=== PATIENT | male | born 1990 | race Caucasian/White ===

== ENCOUNTER 2021-10-02 23:24 | Emergency (ER) | payer SELFPAY ==
--- NOTE | ~2021-10-02 | XR_ITS ---
EXAMINATION: XR chest 1V portable DATE: 10/03/2021 00:50 INDICATION: Chest pain. TECHNIQUE: A single frontal view of the chest was obtained. COMPARISON: None. FINDINGS: The chest demonstrates clear lungs without pneumonia, pleural effusion, or pneumothorax. Th e heart size is normal. IMPRESSION: 1. No acute cardiopulmonary disease. Reviewed, dictated and finalized at location E. D AUTO APPRAISER
--- NOTE | ~2021-10-02 | CT_ITS ---
EXAMINATION: CT brain wo con DATE: 10/03/2021 00:49 INDICATION: Confusion. Headache. TECHNIQUE: Computed tomography (CT) of the head was performed without intravenous contrast. The mA wa s adjusted according to patient size. Iterative reconstruction technique was employed. The dose-lengt h product was 605.33 mGy-cm. COMPARISON: None FINDINGS: There is no intracranial hemorrhage, acute infarction, or abnormal intracranial mass lesion . The ventricles are normal in size. There is mild mucosal thickening in the ethmoid sinuses. The mas toid air cells are normal. IMPRESSION: 1. Normal brain. Reviewed, dictated and finalized at location E. ER MACHINE TENDER IMPRESSION: 1. Normal brain.
[2021-10-02 23:29] VITALS: BP 136/93; PULSE 89; RESP 18; TEMP 36.1; O2SAT 95
--- NOTE | 2021-10-02 23:29 | ED.AMS ---
HPI - Altered Mental Status General Chief Complaint: Anxiety Stated Complaint: confusion Time Seen by Provider: 10/02/21 23:29 History of Present Illness HPI narrative: 31-year-old male with chronic neck /back pain, chronic marijuana use purchased his marijuana from a senior product manager. He subsequently became -- confused and did not know where he was. 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 He was not oriented to place and time. His called the .ambulance. The patient is hemodynamically stable. The patient complained of transient neck pain, chest pain and shortness of breath en route to the hospital. The symptoms resolved after he arrived at the hospital. MD complaint: altered mental status and confusion Onset (ago): hour(s) ( 3 hours ago) Timing confirmed by: spouse Severity: mild Consistency of symptoms: waxing and waning Context: drug abuse Associated symptoms: chest pain and shortness of breath Related Data Home Medications Medication Instructions Recorded Confirmed No Home Medications 10/02/21 10/02/21 Allergies Allergy/AdvReac Type Severity Reaction Status Date / Time No Known Allergies Allergy Verified 10/02/21 23:35 Review of Systems Review of Systems: All systems reviewed & are unremarkable except as noted in HPI and below ROS unobtainable: Yes unobtainable due to endotracheal tube Constitutional: Constitutional: Reports as per HPI and Reports no additional constitutional complaints Eyes: Eyes: Reports as per HPI and Reports no additional eye complaints ENT: Reports system reviewed and no additional complaints, except as documented Cardiovascular: Cardiovascular: Reports as per HPI and Reports chest pain Comments: transient chest pain which lasted 2-3 minutes Respiratory: Respiratory: Reports as per HPI and Reports no additional respiratory complaints Comments: transient shortness of breath en route to the hospital. Gastrointestinal: Gastrointestinal: Reports as per HPI and Reports no additional gastrointestinal complaints Genitourinary: Genitourinary: Reports no additional male genitourinary complaints Musculoskeletal: Musculoskeletal: Reports back pain Comments: complains of chronic neck pain which radiates up and down his spine. No recent trauma. Integumentary/Breasts: Skin/Breast: Reports system reviewed and no additional complaints, except as docu Neurologic: Reports system reviewed and no additional complaints, except as documented and Reports headache(s) Comments: He complained of headache which is generalized. No neuro deficits. No nausea /vomiting. Psychiatric: Psychiatric: Reports no additional psychiatric complaints and Reports anxiety Endocrine: Endocrine: Reports no additional endocrine complaints Hematologic/Lymphatic: Hematologic/Lymphatic: Reports no additional hematologic/lymphatic complaints Allergic/Immunologic: Allergic/Immunologic: Reports no additional allergic/immunologic complaints [facility], LAT[facility] Past Medical History Medical History Anxiety Broken ankle Depression Hallucination Tremors of nervous system Social History Social History (Updated 10/03/21 @ 00:55 by Fidel Rosario MD) Social History: Marijuana use Substance use type: marijuana Exam Const: General: no acute distress and confusion Nutritional Appearance: well nourished and obese HENMT: Head: normal to inspection Eyes: Conjunctivae: conjunctivae normal Pupils: Equal, round and reactive pupils present Neck: Neck: normal visual inspection Chest: Chest palpation & inspection: normal inspection of the chest Resp: Effort & Inspection: normal respiratory effort Cardio: Rate: regular rate Rhythm: regular rhythm GI: GI Palp: Yes Soft to palpation : General: Yes no CVA tenderness Testes: Testes normal Skin: General skin exam: normal color Rashes: no rashes Neuro: General: moves all extremit
--- NOTE | 2021-10-02 23:30 | ECG_ITS ---
Measurements Intervals [place] Rate: 75 P: 43 IL: 150 QRS: 14 QRSD: 100 T: 14 QT: 332 QTc: 371 Interpretive Statements SINUS RHYTHM EARLY PRECORDIAL R/S TRANSITION BASELINE ARTIFACT- I, II, III, AVR, AVL, AVF BORDERLINE ECG Electronically Signed On 10-03-2021 7:34:35 BASKET MENDER by Samir Blackman D.O.
[2021-10-02 23:52] LABS: Basophils Absolute Auto 0.05 K/mm3 (0.00-0.10); Basophils Percent Auto 0.5 % (0.0-1.0); Hematocrit 45.2 % (40.0-54.0); Hemoglobin 15.8 g/dL (14.0-18.0); Immature Granulocyte Absolute 0.03 K/mm3 (0.00-0.00); Immature Granulocyte Percent A 0.3 % (0.0-0.0); Lymphocytes Absolute Auto 2.47 K/mm3 (1.10-4.50); Mean Corpuscular Hemoglobin 29.5 pg (27.0-31.0); Mean Corpuscular Volume 84.5 fL (78.0-102.0); Mean Platelet Volume 9.3 fl (8.7-11.0); Monocytes Absolute Auto 0.69 K/mm3 (0.10-0.90); Neutrophils Absolute Auto 6.5 K/mm3 (1.7-7.2); Neutrophils Percent Auto 66.2 % (50.0-70.0); Platelet Count Result 305 K/mm3 (150-420); Red Blood Count 5.35 M/mm3 (4.70-6.10); Red Cell Distribution Width 11.8 % (11.6-14.4); White Blood Count 9.9 K/mm3 (4.8-10.8)
[2021-10-03] LABS: Add Urine Microscopic? YES; Appearance Urine Clear (Clear); Bilirubin Urine Negative (Negative); Blood Urine 2+ (Negative); Color Urine Light Yellow (Yellow); Glucose Urine UA Negative (Negative); Ketones Urine Negative (Negative); Leukocyte Esterase Ur Negative (Negative); Nitrate Urine Negative (Negative); Protein Urine Negative (Negative); Urobilinogen Urine 0.2 mg/dL (0.2-1.0)
[2021-10-03 00:05] LABS: INR 1.1; Partial Thromboplastin Time 26.5 SEC (23.90-30.70); Prothrombin Time 11.4 Seconds (9.50-12.10)
[2021-10-03 00:07] LABS: Amphetamine Screen Urine Negative (Negative); Bacteria Urine Trace /hpf; Barbiturate Screen Urine Negative (Negative); Benzodiazepines Screen Urine Negative (Negative); Cannabinoid Screen Urine Positive (Negative); Cocaine Screen Urine Negative (Negative); Methadone Screen Urine Negative (Negative); Opiate Screen Urine Negative (Negative); Phencyclidine Screen Urine Negative (Negative); WBC Urine 0-3 /hpf (0-3)
[2021-10-03 00:09] LABS: Alanine Aminotransferase 30 U/L (16-63); Albumin Level 4.5 g/dL (3.4-5.0); Alkaline Phosphatase 69 U/L (46-116); Anion Gap 12 mmol/L (8-16); Aspartate Amino Transferase 15 U/L (15-37); Bilirubin,Total 0.8 mg/dL (0.00-1.00); Blood Urea Nitrogen 15 mg/dL (7-18); Calcium 8.9 mg/dL (8.5-10.1); Carbon Dioxide 25 mmol/L (21-32); Chloride 101 mmol/L (98-108); Estimated CRCL calculation 138 ml/min; Estimated Glomerular Filt Rate > 60; Glucose 103 mg/dL (70-99); Osmolality Calculated 286 mOsm/kg (285-295); Potassium 3.3 mmol/L (3.5-5.1); Sodium 138 mmol/L (136-145); Troponin I 5.6 ng/L (0.00-60.4)
[2021-10-03 00:12] LABS: Lipase 93 U/L (73-393)
[2021-10-03 00:28] LABS: SARS-CoV-2 RNA PCR Negative (Negative)
[2021-10-03] MEDS: POTASSIUM CHLORIDE 20 MEQ TABLET 40 MEQ PO (01:02)
[2021-10-03 02:11] VITALS: BP 115/85; PULSE 67; RESP 16; TEMP 36.8; O2SAT 97
== END 2021-10-03 02:12 | disposition home or self-care (01) ==
PROVIDERS: Emergency Provider Internal Medicine Critical Care Medicine
DX: R41.82 Altered mental status, unspecified (principal); F12.10 Cannabis abuse, uncomplicated; Z20.822 Contact with and (suspected) exposure to COVID-19
CPT/HCPCS: 36415; 70450; 71045; 80053; 80307; 81001; 83690; 84484; 85025; 85610; 85730; 93005; 99284; A9270; C9803; U0003; U0005

== ENCOUNTER 2022-03-06 15:19 | Emergency (ER) | payer OTHER, SELFPAY ==
[2022-03-06] VITALS (12 sets, daily range): BP systolic 122–139; BP diastolic 77–104; PULSE 79–104; RESP 12–23; TEMP 36.8–36.9; O2SAT 96–98
--- NOTE | ~2022-03-06 | CT_ITS ---
EXAMINATION: CT abdomen pelvis w con DATE: 03/06/2022 17:01 INDICATION: Posterior abdominal pain. Intermittent nausea and blood in stools for 7 months. Lack stoo ls for 2 days. Decreased appetite. TECHNIQUE: Computed tomography (CT) of the abdomen and pelvis was performed with 100 CC Omnipaque 350 intravenous contrast. Automated exposure control and iterative reconstruction technique were employe d. Exam dose: 1029.77 mGy-cm total exam DLP. COMPARISON: 03/22/2014 ultrasound of abdomen 03/20/2014 CT abdomen pelvis FINDINGS: The lung bases are clear of infiltrate or consolidation. Normal heart size. No pericardial or pleural effusion. The liver, gallbladder, bile ducts, spleen, pancreas, pancreatic duct, and adrenal glands are unremar kable. No left renal mass lesion. Lower pole 7.5 mm right renal cyst. Indeterminate approximately 7 mm hypoattenuating lesion of the peripheral aspect of the lateral right lower kidney, possibly a small cyst or less likely infarct. Additional very small probable cyst at t he lower pole of the right kidney. No urinary tract calculus or hydroureteronephrosis. Normal caliber of the abdominal aorta. No intraperitoneal or retroperitoneal or pelvic mass lesion or adenopathy or ascites. The urinary bladder is unremarkable. Prostate calcifications are noted. Normal appendix. Mild colonic diverticulosis. No CT evidence of diverticulitis. No bowel obstruction, bowel wall thickening, pneumatosis or intraperitoneal free air is detected. No suspicious osteolytic or osteoblastic lesion. IMPRESSION: Right renal probable cysts Diverticulosis of the colon; no CT evidence of diverticulitis Normal appendix Reviewed, dictated and finalized at Location [facility]. Reviewed, dictated and finalized at location A.
--- NOTE | 2022-03-06 15:54 | ECG_ITS ---
Measurements Intervals [place] Rate: 89 P: 43 IL: 116 QRS: 37 QRSD: 96 T: 34 QT: 327 QTc: 398 Interpretive Statements SINUS RHYTHM WITH SINUS ARRHYTHMIA WITH SHORT IL INTERVAL INCOMPLETE RIGHT BUNDLE BRANCH BLOCK BORDERLINE ECG Electronically Signed On 03-06-2022 16:05:24 CDT by Samir Blackman D.O.
[2022-03-06] MEDS: SODIUM CHLORIDE 0.9% IV 1,000 ML 999 ML IV CONT (16:16)
[2022-03-06] MEDS: PANTOPRAZOLE SODIUM IV 40 MG VIAL 80 MG IV PUSH (16:16)
[2022-03-06 16:24] LABS: Occult Blood Negative (Negative)
[2022-03-06 16:26] LABS: Basophils Absolute Auto 0.06 K/mm3 (0.00-0.10); Basophils Percent Auto 0.6 % (0.0-1.0); Eosinophils Absolute Auto 0.14 K/mm3 (0.02-0.50); Eosinophils Percent Auto 1.5 % (1.0-6.0); Hematocrit 44.5 % (40.0-54.0); Hemoglobin 15.5 g/dL (14.0-18.0); Immature Granulocyte Absolute 0.03 K/mm3 (0.00-0.00); Immature Granulocyte Percent A 0.3 % (0.0-0.0); Lymphocytes Percent Auto 24.6 % (18.0-42.0); Mean Corpuscular HGB Conc 34.8 g/dL (32.0-36.0); Mean Corpuscular Volume 86.2 fL (78.0-102.0); Mean Platelet Volume 9.7 fl (8.7-11.0); Monocytes Absolute Auto 0.75 K/mm3 (0.10-0.90); Neutrophils Absolute Auto 6.1 K/mm3 (1.7-7.2); Platelet Count Result 326 K/mm3 (150-420); Red Blood Count 5.16 M/mm3 (4.70-6.10); Red Cell Distribution Width 12.1 % (11.6-14.4); White Blood Count 9.4 K/mm3 (4.8-10.8)
[2022-03-06] MEDS: MORPHINE SULFATE (*CRX) 2 MG/ML INJ IV PUSH (16:37)
[2022-03-06 16:40] LABS: Ammonia 26 umol/L (11-32); Magnesium 2.2 mg/dL (1.8-2.4)
[2022-03-06 16:41] LABS: Alanine Aminotransferase 19 U/L (16-63); Albumin Level 4.2 g/dL (3.4-5.0); Alkaline Phosphatase 83 U/L (46-116); Anion Gap 7 mmol/L (8-16); Aspartate Amino Transferase 10 U/L (15-37); Bilirubin,Total 0.4 mg/dL (0.00-1.00); Blood Urea Nitrogen 17 mg/dL (7-18); Calcium 8.9 mg/dL (8.5-10.1); Carbon Dioxide 27 mmol/L (21-32); Chloride 103 mmol/L (98-108); Estimated CRCL calculation 141 ml/min; Estimated Glomerular Filt Rate > 60; Glucose 85 mg/dL (70-99); INR 0.9; Lipase 107 U/L (73-393); Osmolality Calculated 284 mOsm/kg (285-295); Partial Thromboplastin Time 26.1 SEC (23.90-30.70); Potassium 3.6 mmol/L (3.5-5.1); Prothrombin Time 10.1 Seconds (9.50-12.10); Sodium 137 mmol/L (136-145); Total Protein 7.7 g/dL (6.4-8.2)
[2022-03-06 16:43] LABS: CRP < 0.2 mg/dL (0.0-0.9)
--- NOTE | 2022-03-06 17:29 | ED.ABDPAIN ---
HPI - Abdominal Pain General Chief Complaint: GI Bleed Stated Complaint: blood in stool Source: patient and family Mode of arrival: ambulatory Limitations: no limitations History of Present Illness HPI narrative: this is a 31-year-old gentleman that presents with what he states is having black tardy stools he has had symptoms for the last 2 to 3 months has been taking Pepto-Bismol for abdominal discomfort. Patient's vital signs are stable. Does have some mild abdominal pain diffuse with some no fever chills no nausea vomiting no diarrhea constipation no flank pain no chest pain no shortness of breath. MD elicited complaint: abdominal pain Pertinent past history: gastrointestinal bleeding Onset (ago): month(s) Pain Consistency: intermittent Location: diffuse Severity: mild Quality: aching and fullness Related Data Allergies Allergy/AdvReac Type Severity Reaction Status Date / Time No Known Allergies Allergy Verified 03/06/22 15:33 Review of Systems Review of Systems: All systems reviewed & are unremarkable except as noted in HPI and below PMFSH Past Medical History Medical History Anxiety Broken ankle Depression Hallucination Tremors of nervous system Social History Social History Social History: Marijuana use Substance use type: marijuana Exam Const: General: healthy appearing HENMT: Head: normal to inspection Ears: external ears normal General nose exam: Normal external nose present Face and sinus: normal facial exam Eyes: Conjunctivae: conjunctivae normal Pupils: Equal, round and reactive pupils present Neck: Neck: normal visual inspection, no lymphadenopathy and no meningeal signs Cardio: Rate: regular rate Rhythm: regular rhythm GI: GI Palp: Yes Soft to palpation and Yes Tenderness to palpation present (GI) Auscultation: normal bowel sounds : General: Yes bladder normal to palpation Urinary Catheter: Urinary Catheter: patent and draining Back/Spine/Pelvis: Back: no CVA tenderness Skin: General skin exam: normal color Rashes: no rashes Neuro: General: patient oriented x3 and moves all extremities Extrem: General: normal to inspection, no clubbing, cyanosis or edema and no pedal edema Psych: Mental Status: mental status grossly normal Affect: normal affect Course Course Emergency Course: Labs reviewed with patient, patient received IV fluids and pain medication and that after reassessment has helped his pain level. CT scan was reviewed with patient and family which shows there was diverticulosis. Advised patient to follow-up with his primary to have a colonoscopy performed. Currently no bleeding had a stool guaiac and rectal exam performed which showed no black tardy stools. Vital Signs Vital signs: Vital Signs Temperature 36.8 C 03/06/22 15:27 Pulse Rate 104 H 03/06/22 15:27 Respiratory Rate 18 03/06/22 15:27 Blood Pressure 139/104 H 03/06/22 15:27 Pulse Oximetry 96 03/06/22 15:27 Oxygen Delivery Room Air 03/06/22 15:27 Temperature 36.8 C 03/06/22 15:27 Pulse Rate 89 03/06/22 16:31 Respiratory Rate 12 03/06/22 16:31 Blood Pressure 123/77 03/06/22 16:31 Pulse Oximetry 96 03/06/22 16:31 Oxygen Delivery Room Air 03/06/22 15:27 MDM - Abdominal Pain Lab Data Result diagrams: 03/06/22 16:19 03/06/22 16:19 Labs: Lab Results 03/06/22 03/06/22 03/06/22 Range/Units 16:19 16:19 16:19 WBC 9.4 (4.8-10.8) K/mm3 RBC 5.16 (4.70-6.10) M/mm3 Hgb 15.5 (14.0-18.0) g/dL Hct 44.5 (40.0-54.0) % MCV 86.2 (78.0-102.0) fL MCH 30.0 (27.0-31.0) pg MCHC 34.8 (32.0-36.0) g/dL RDW 12.1 (11.6-14.4) % Plt Count 326 (150-420) K/mm3 MPV 9.7 (8.7-11.0) fl Immature Gran % (Auto) 0.3 H (0.0-0.0) % Neut % (Auto) 65.0 (50.0-70.0) % Lymph % (Auto
--- NOTE | 2022-03-06 18:10 | PC.NURSE ---
Pt requested another pharmacy due to preferred pharmacy being closed at this time. Sent to [facility] pharmacy instead. this RN called [facility] informing them to cancel Percocet prescription to avoid double fill.
--- NOTE | 2022-03-11 21:36 | PC.NURSE ---
pt transfer packet information faxed to [facility] ER per their request. release form received.
== END 2022-03-06 17:57 | disposition home or self-care (01) ==
PROVIDERS: Emergency Provider Emergency Medicine; PCP Physician Assistant
DX: K57.90 Diverticulosis of intestine, part unspecified, without perforation or abscess without bleeding (principal); R10.9 Unspecified abdominal pain
CPT/HCPCS: 36415; 74177; 80053; 82140; 82272; 83690; 83735; 85025; 85610; 85730; 86140; 93005; 96361; 96374; 96375; 99284; C9113; J2270; J7030; Q9967

== ENCOUNTER 2022-03-17 16:49 | Emergency (ER) | payer OTHER, SELFPAY ==
--- NOTE | ~2022-03-17 | CT_ITS ---
EXAMINATION: CT abdomen pelvis wo con DATE: 03/17/2022 19:13 INDICATION: nausea and vomiting x 1 wk TECHNIQUE: Computed tomography (CT) of the abdomen and pelvis was performed without intravenous contr ast. Automated exposure control and iterative reconstruction technique were employed. The dose-length product was 926.78 mGy-cm. COMPARISON: 03/06/2022. FINDINGS: Lower thorax: Unremarkable Liver: Normal. Biliary/Gallbladder: No bile duct dilation. Pancreas: No mass or duct dilation. Spleen: Normal. Adrenals:No mass. Kidneys: No mass, stone, or hydronephrosis. GI tract: No small or large bowel dilation. Stable mild dilation of the appendix, without surrounding inflammatory change. Mesentery/Peritoneum: No ascites, mass, or free air. Retroperitoneum: No mass. Pelvis: Pelvic organs are within normal limits. Soft Tissues: Soft tissues and body wall unremarkable. Bones: No acute osseous finding. IMPRESSION: No acute abdominopelvic process. Reviewed, dictated and finalized at location K.
--- NOTE | ~2022-03-17 | CT_ITS ---
EXAMINATION: CT brain wo con DATE: 03/17/2022 19:13 INDICATION: dizziness with temporal QUINTEROS . TECHNIQUE: Computed tomography (CT) of the head was performed without intravenous contrast. The mA wa s adjusted according to patient size. Iterative reconstruction technique was employed. The dose-lengt h product was 926.78 mGy-cm. COMPARISON: 10/03/2021. FINDINGS: No acute intracranial hemorrhage or extra-axial fluid collection. No hydrocephalus, mass, or herniation. No acute ischemic infarct. Unremarkable dural venous sinus attenuation. No acute osseous abnormality. The aerated spaces are clear. IMPRESSION: No acute intracranial process. Reviewed, dictated and finalized at location K.
--- NOTE | ~2022-03-17 | XR_ITS ---
EXAMINATION: XR chest 1V portable Exam Date/Time: 03/17/2022 19:05 CDT HISTORY: heartburn Comparison: 10/03/2021. RESULT: Lines, tubes, and devices: None. Lungs and pleura: Clear. Cardiomediastinal silhouette: Stable cardiomediastinal silhouette. Other: No acute osseous or upper abdominal finding. IMPRESSION: No acute cardiopulmonary process. Reviewed, dictated and finalized at location K.
[2022-03-17 17:12] VITALS: BP 145/85; PULSE 84; RESP 16; TEMP 36.9; O2SAT 98
--- NOTE | 2022-03-17 17:49 | ECG_ITS ---
Measurements Intervals [place] Rate: 79 P: 48 TN: 143 QRS: 30 QRSD: 106 T: 15 QT: 352 QTc: 404 Interpretive Statements SINUS RHYTHM NORMAL ECG Electronically Signed On 03-17-2022 18:58:47 CDT by Samir Blackman D.O.
[2022-03-17 18:21] LABS: Base Excess ABG 0.5 mmol/L (0-2); HCO3 ABG 25.2 mmol/L (23-29); Oxygen Saturation ABG 95.5 % (95-97); Oxyhemoglobin 94.8 % (94-100); PCO2 ABG 40.7 mmHg (35-45); PO2 ABG 83.2 mmHg (80-90); pH ABG 7.41 (7.35-7.45)
[2022-03-17 18:23] LABS: Device ROOM AIR; Modified Allen's Test Pass; Site Drawn RIGHT RADIAL
[2022-03-17 18:46] LABS: Basophils Absolute Auto 0.07 K/mm3 (0.00-0.10); Basophils Percent Auto 0.8 % (0.0-1.0); Eosinophils Absolute Auto 0.17 K/mm3 (0.02-0.50); Eosinophils Percent Auto 1.9 % (1.0-6.0); Hematocrit 43.2 % (40.0-54.0); Hemoglobin 14.9 g/dL (14.0-18.0); Immature Granulocyte Absolute 0.01 K/mm3 (0.00-0.00); Immature Granulocyte Percent A 0.1 % (0.0-0.0); Lymphocytes Absolute Auto 2.11 K/mm3 (1.10-4.50); Lymphocytes Percent Auto 23.9 % (18.0-42.0); Mean Corpuscular HGB Conc 34.5 g/dL (32.0-36.0); Mean Corpuscular Hemoglobin 29.8 pg (27.0-31.0); Mean Corpuscular Volume 86.4 fL (78.0-102.0); Mean Platelet Volume 9.3 fl (8.7-11.0); Monocytes Absolute Auto 0.62 K/mm3 (0.10-0.90); Neutrophils Absolute Auto 5.9 K/mm3 (1.7-7.2); Neutrophils Percent Auto 66.3 % (50.0-70.0); Platelet Count Result 291 K/mm3 (150-420); Red Cell Distribution Width 11.9 % (11.6-14.4); White Blood Count 8.8 K/mm3 (4.8-10.8)
[2022-03-17] MEDS: MAG HYDROX/ALUMINUM HYD/SIMETH 30 ML, PHENobarb/HYOSCY/ATROPINE/SCOP 32.4 MG, LIDOCAINE... PO (18:51)
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
[2022-03-17 19:03] LABS: Add Urine Microscopic? NO; Appearance Urine Clear (Clear); Bilirubin Urine Negative (Negative); Blood Urine Negative (Negative); Color Urine Light Yellow (Yellow); Glucose Urine UA Negative (Negative); Ketones Urine Negative (Negative); Leukocyte Esterase Ur Negative LEU/UL (Negative); Nitrate Urine Negative (Negative); Protein Urine Negative (Negative)
[2022-03-17 19:05] LABS: Alanine Aminotransferase 25 U/L (16-63); Albumin Level 4.1 g/dL (3.4-5.0); Alkaline Phosphatase 75 U/L (46-116); Anion Gap 7 mmol/L (8-16); Aspartate Amino Transferase 14 U/L (15-37); Bilirubin,Total 0.5 mg/dL (0.00-1.00); Blood Urea Nitrogen 12 mg/dL (7-18); Calcium 9.2 mg/dL (8.5-10.1); Carbon Dioxide 28 mmol/L (21-32); Chloride 107 mmol/L (98-108); Estimated Glomerular Filt Rate > 60; Glucose 75 mg/dL (70-99); Lactic Acid Reflex 1.1 mmol/L (0.4-2.0); Lipase 102 U/L (73-393); Osmolality Calculated 292 mOsm/kg (285-295); Potassium 3.5 mmol/L (3.5-5.1); Sodium 142 mmol/L (136-145); Total Protein 7.2 g/dL (6.4-8.2); Troponin I 9.2 ng/L (0.00-60.4)
[2022-03-17 19:08] LABS: Ethanol < 3 mg/dL (0-6)
[2022-03-17 19:16] LABS: Amphetamine Screen Urine Negative (Negative); Barbiturate Screen Urine Negative (Negative); Benzodiazepines Screen Urine Negative (Negative); Cannabinoid Screen Urine Negative (Negative); Cocaine Screen Urine Negative (Negative); Methadone Screen Urine Negative (Negative); Opiate Screen Urine Negative (Negative); Phencyclidine Screen Urine Negative (Negative)
--- NOTE | 2022-03-17 19:21 | PC.NURSE ---
report given to JING Stephens.
--- NOTE | 2022-03-17 19:50 | ED.ABDPAIN ---
HPI - Abdominal Pain General Chief Complaint: Abdominal Pain Stated Complaint: stomach pain Time Seen by Provider: 03/17/22 16:53 Source: patient and RN notes reviewed Mode of arrival: ambulatory Limitations: no limitations History of Present Illness MD elicited complaint: abdominal pain Pertinent past history: gastritis Onset (ago): day(s) (1) Pain Consistency: constant Location: epigastric Severity: mild Pain scale (0-10): 6 Quality: cramping, aching and dull Exacerbating factors: nothing Relieving factors: bowel movement Associated symptoms: nausea Related Data Allergies Allergy/AdvReac Type Severity Reaction Status Date / Time No Known Allergies Allergy Verified 03/17/22 17:17 Review of Systems Review of Systems: All systems reviewed & are unremarkable except as noted in HPI and below Constitutional: Constitutional: Reports no additional constitutional complaints Eyes: Eyes: Reports no additional eye complaints ENT: Reports system reviewed and no additional complaints, except as documented Cardiovascular: Cardiovascular: Reports no additional cardiovascular complaints Respiratory: Respiratory: Reports no additional respiratory complaints Gastrointestinal: Gastrointestinal: Reports no additional gastrointestinal complaints, Reports abdominal pain, Reports heartburn and Reports nausea Musculoskeletal: Musculoskeletal: Reports no additional musculoskeletal complaints Integumentary/Breasts: Skin/Breast: Reports system reviewed and no additional complaints, except as docu Neurologic: Reports system reviewed and no additional complaints, except as documented Psychiatric: Psychiatric: Reports no additional psychiatric complaints Endocrine: Endocrine: Reports no additional endocrine complaints Hematologic/Lymphatic: Hematologic/Lymphatic: Reports no additional hematologic/lymphatic complaints Allergic/Immunologic: Allergic/Immunologic: Reports no additional allergic/immunologic complaints PMFSH Past Medical History Medical History (Updated 04/14/22 @ 01:03 by Maurice Gibson MD) Anxiety Broken ankle Depression Gastritis Hallucination Tremors of nervous system Surgical History Surgical History (Updated 03/14/22 @ 08:38 by Idania Milton MA) History of ankle surgery broken ankle repair History of surgery on arm left arm and chest Social History Social History (Updated 03/14/22 @ 08:45 by Idania Milton MA) Social History: Marijuana use Smoking status: Current every day smoker Tobacco type: e-cigarettes/vaping Alcohol intake: current Alcohol use details: social Substance use: current Substance use type: marijuana Exam Const: General: no acute distress Nutritional Appearance: well nourished Orientation/consciousness: patient oriented x3 Limitations: no limitations HENMT: Head: normal to inspection Ears: external ears normal, TM's normal bilaterally and EAC's normal General nose exam: Normal external nose present and Normal nares present Face and sinus: normal facial exam and sinuses nontender Mouth: Yes Normal oral and palatal mucosa present and Yes moist mucous membranes Teeth and gingiva: dentition normal Throat: posterior oropharynx normal Eyes: Conjunctivae: conjunctivae normal Pupils: Equal, round and reactive pupils present EOM: EOMs intact bilaterally Neck: Neck: normal visual inspection, no lymphadenopathy and no meningeal signs Chest: Chest palpation & inspection: normal inspection of the chest Resp: Effort & Inspection: normal respiratory effort Auscultation: clear to auscultation bilaterally Cardio: Rate: regular rate Rhythm: regular rhythm GI: GI Palp: Yes Soft to palpation and Yes Tenderness to palpation present (GI) (epigastrium) Auscultation: normal bowel sounds : General: Yes bladder normal to palpation and Yes no CVA tenderness Back/Spine/Pelvis: Back: no CVA tenderness Skin: General skin exam: normal color Rashes: no ra
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
--- NOTE | 2022-03-17 21:14 | PC.NURSE ---
pt refused order Motrin 800mg for abdominal pain of 10 out of 10, MD Gibson updated.
[2022-03-17 21:15] VITALS: BP 113/80; PULSE 66; RESP 18; TEMP 36.6; O2SAT 99
== END 2022-03-17 21:17 | disposition home or self-care (01) ==
PROVIDERS: Emergency Provider Emergency Medicine; PCP Nurse Practitioner Family
DX: K29.70 Gastritis, unspecified, without bleeding (principal); F41.9 Anxiety disorder, unspecified; F32.A Depression, unspecified; F17.290 Nicotine dependence, other tobacco product, uncomplicated
CPT/HCPCS: 36415; 36600; 70450; 71045; 74176; 80053; 80307; 81003; 82805; 83605; 83690; 84484; 85025; 93005; 99284; A9270

== ENCOUNTER 2022-11-18 07:20 | Emergency (ER) | payer OTHER, SELFPAY ==
[2022-11-18 07:20] VITALS: BP 130/74; PULSE 95; RESP 18; TEMP 36.4; O2SAT 97
--- NOTE | 2022-11-18 07:28 | ED.NAVMDI ---
HPI - Nausea/Vomiting/Diarrhea General Chief complaint: Upper Respiratory Infection Stated complaint: sore throat Time Seen by Provider: 11/18/22 07:27 History of Present Illness HPI Narrative: 32-year-old white male complains of nausea and vomiting and sore throat for the last 3 days brought by EMS. His sore throat started yesterday she vomited twice last 24 hours no BM for 3 days he has any new anything for 3 days. When he woke up this morning about this he said his hurt so much in his throat that was hard to talk. He has had a nonproductive cough. No rash no itching no problems voiding. Related Data Allergies Allergy/AdvReac Type Severity Reaction Status Date / Time No Known Allergies Allergy Verified 11/18/22 07:41 Review of Systems Constitutional: Constitutional: Reports anorexia, Denies fatigue, Denies fever(s), Denies increased appetite, Reports lethargy and Reports malaise Eyes: Eyes: Denies no additional eye complaints ENT: Denies dizziness and Reports sore throat Cardiovascular: Cardiovascular: Reports no additional cardiovascular complaints Respiratory: Respiratory: Reports cough Gastrointestinal: Gastrointestinal: Denies abdominal pain, Denies constipation, Denies diarrhea, Denies nausea and Reports vomiting Genitourinary: Genitourinary: Reports no additional male genitourinary complaints Musculoskeletal: Musculoskeletal: Reports myalgias PMFSH Past Medical History Medical History Anxiety Broken ankle Depression Gastritis Hallucination Tremors of nervous system Surgical History Surgical History History of ankle surgery broken ankle repair History of surgery on arm left arm and chest Social History Social History Social History: Marijuana use Smoking status: Current every day smoker Tobacco type: e-cigarettes/vaping Alcohol intake: current Alcohol use details: social Substance use: current Substance use type: marijuana 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 Head is normocephalic atraumatic eyes conjunctiva pink sclera nonicteric. Oropharynx shows moist mucous membranes posterior pharynx is erythematous with exudates. Neck is supple positive anterior lymphadenopathy. Lungs are clear heart is regular rate and rhythm without murmurs gallops rubs abdomen is soft and nontender no hepatosplenomegaly or masses no CVA tenderness no abdominal bruits. Back is nontender. Chest wall is nontender. Extremities no cyanosis clubbing or edema. Neurological motor and sensory grossly intact. MDM - Nausea/Vomiting/Diarrhea MDM Narrative Medical decision making narrative: symptoms of fairly acute last 3 days worse the last day brought by EMS. Not eaten anything or drunk anything really for the last 3 days with exudate of pharyngitis. Ordered IV fluids IV Toradol flu strep COVID and RSV testing all of which are in the differential. He also is probably somewhat volume depleted. He took some Zofran from his he has taken Tylenol. Medications list reviewed. Strep was positive. Patient was given pen VK 500 p.o. COVID flu a and B and RSV were negative Discharge Plan Discharge Clinical Impression: Acute streptococcal pharyngitis, Fluid volume depletion Patient Disposition: Home, Self-Care Condition: Improved Instructions: Antibiotic Form, Strep Throat (ED) Additional Instructions: pen VK 500 twice a day for 10 days get filled in pharmacy. Tylenol ibuprofen as needed for pain Chloraseptic throat lozenge for pain. Salt water gargles as needed. return to work November 21. Prescriptions: New penicillin V potassium 500 mg tablet 500 mg PO Q12H 10 Days Qty: 20 0RF Follow-up/Referrals: Ramesh,JOAQUIM Willoughby [Primary Care Provider] - Stand Alone Form
[2022-11-18 07:30] VITALS: O2SAT 97
[2022-11-18 07:59] LABS: Strep Group A RT-PCR DETECTED (Negative)
[2022-11-18] MEDS: SODIUM CHLORIDE 0.9% IV 1,000 ML 999 ML IV CONT (08:01)
[2022-11-18] MEDS: KETOROLAC 30 MG/ML VIAL (*BKC) IV PUSH (08:02)
[2022-11-18 08:10] VITALS: BP 125/66; PULSE 88; RESP 18; TEMP 36.4; O2SAT 99
[2022-11-18 08:13] LABS: Influenza A QL RT-PCR Negative (Negative); Influenza B QL RT-PCR Negative (Negative); SARS-CoV-2 RNA PCR Negative (Negative)
[2022-11-18 08:19] LABS: RSV RNA, RT-PCR Negative (Negative)
== END 2022-11-18 08:40 | disposition home or self-care (01) ==
LOC: CHSED 08:18
PROVIDERS: Emergency Provider Emergency Medicine; PCP Physician Assistant
DX: J02.0 Streptococcal pharyngitis (principal); E86.9 Volume depletion, unspecified; F17.290 Nicotine dependence, other tobacco product, uncomplicated; Z20.822 Contact with and (suspected) exposure to COVID-19
CPT/HCPCS: 87637; 87651; 96361; 96374; 99283; A9270; J1885; J7030

== ENCOUNTER 2023-05-04 21:00 | Emergency (ER) | payer OTHER, SELFPAY ==
--- NOTE | ~2023-05-04 | CT_ITS ---
EXAMINATION: CT brain wo con DATE: 05/05/2023 10:40 INDICATION: Severe headache. TECHNIQUE: Computed tomography (CT) of the head was performed without intravenous contrast. The mA wa s adjusted according to patient size. Iterative reconstruction technique was employed. The dose-lengt h product was 756.67 mGy-cm. COMPARISON: Head CT 03/17/2022 FINDINGS: Motion artifact mildly decreased sensitivity. There is no intracranial hemorrhage, acute in farction, or abnormal intracranial mass lesion. The ventricles are normal in size. There is mild muco ga thickening in the ethmoid sinuses. The mastoid air cells are normal. The orbits are normal. IMPRESSION: 1. Normal brain. Reviewed, dictated and finalized at location A. IMPRESSION: 1. Normal brain.
--- NOTE | 2023-05-08 11:54 | ED.GENADULT ---
HPI - General Adult History of Present Illness HPI narrative: Yonas presented to clinic with a headache for over a month. He has pounding pain in the top of his head that eventually goes to both legs. It is worse with loud noises and bright light. When it leaves he is exhaused. No trauma. Related Data Allergies Allergy/AdvReac Type Severity Reaction Status Date / Time No Known Allergies Allergy Verified 11/18/22 07:41 Review of Systems Review of Systems: All systems reviewed & are unremarkable except as noted in HPI and below PMFSH Past Medical History Medical History Anxiety Broken ankle Depression Gastritis Hallucination Tremors of nervous system Surgical History Surgical History History of ankle surgery broken ankle repair History of surgery on arm left arm and chest Social History Social History Social History: Marijuana use Smoking status: Current every day smoker Tobacco type: e-cigarettes/vaping Alcohol intake: current Alcohol use details: social Substance use: current Substance use type: marijuana Exam Const: General: cooperative, healthy appearing, comfortable, no acute distress, well developed, alert, awake and Physically active Orientation/consciousness: oriented to person, oriented to place and oriented to time HENMT: Head: normal to inspection, normocephalic and atraumatic Ears: hearing grossly normal bilaterally and external ears normal Face/Nose/Sinus: Normal external nose present Eyes: General: appearance normal, both eyes and all related structures Periorbital: periorbital findings normal Sclera: sclerae normal Pupils: Equal, round and reactive pupils present Neck: Neck: normal visual inspection Chest: Chest palpation & inspection: normal inspection of the chest Resp: Effort & Inspection: normal respiratory effort, able to speak in complete sentences and no respiratory distress Cardio: Jugular venous distension: no JVD Skin: General skin exam: normal color and no rashes or lesions noted Neuro: General: oriented to person, oriented to place and oriented to time Cranial nerves: Yes Equal, round and reactive pupils present Other: CNII-XII intact as tested. Extrem: General: normal to inspection Course Course Emergency Course: Ordered CT brain and meds. Patient left AMA after the imaging. Ordering Physician: Eben Roach DO Date of Service: 05/04/23 Procedure(s): CT brain wo con Accession Number(s): [id number] cc: Eben Roach DO; STEFFANY CASTAÑEDA~ EXAMINATION: CT brain wo con DATE: 05/05/2023 10:40 INDICATION: Severe headache. TECHNIQUE: Computed tomography (CT) of the head was performed without intravenous contrast. The mA was adjusted according to patient size. Iterative reconstruction technique was employed. The dose-length product was 756.67 mGy-cm. COMPARISON: Head CT 03/17/2022 FINDINGS: Motion artifact mildly decreased sensitivity. There is no intracranial hemorrhage, acute infarction, or abnormal intracranial mass lesion. The ventricles are normal in size. There is mild mucosal thickening in the ethmoid sinuses. The mastoid air cells are normal. The orbits are normal. IMPRESSION: 1. Normal brain. Discharge Plan Discharge Clinical Impression: Headache Patient Disposition: Left Against Medical Advice Condition: Serious Prescriptions: No Action penicillin V potassium 500 mg tablet 500 mg PO Q12H 10 Days Qty: 20 0RF
== END 2023-05-04 22:03 | disposition left against medical advice (07) ==
LOC: CHSED 05-05 08:47
PROVIDERS: Emergency Provider Family Medicine
DX: R51.9 Headache, unspecified (principal); F17.290 Nicotine dependence, other tobacco product, uncomplicated
CPT/HCPCS: 70450; 96374; 96375; 99284; J0780; J1200; J1885; J7030

== ENCOUNTER 2023-05-18 08:12 | Outpatient (CLI) | payer OTHER, SELFPAY ==
[2023-05-18 08:24] LABS: Basophils Absolute Auto 0.04 K/mm3 (0.00-0.10); Basophils Percent Auto 0.7 % (0.0-1.0); Eosinophils Absolute Auto 0.14 K/mm3 (0.02-0.50); Eosinophils Percent Auto 2.5 % (1.0-6.0); Hematocrit 42.7 % (40.0-54.0); Hemoglobin 14.8 g/dL (14.0-18.0); Immature Granulocyte Absolute 0.02 K/mm3 (0.00-0.00); Immature Granulocyte Percent A 0.4 % (0.0-0.0); Lymphocytes Absolute Auto 0.87 K/mm3 (1.10-4.50); Lymphocytes Percent Auto 15.3 % (18.0-42.0); Mean Corpuscular HGB Conc 34.7 g/dL (32.0-36.0); Mean Corpuscular Hemoglobin 30.3 pg (27.0-31.0); Mean Corpuscular Volume 87.3 fL (78.0-102.0); Mean Platelet Volume 9.4 fl (8.7-11.0); Monocytes Absolute Auto 0.69 K/mm3 (0.10-0.90); Monocytes Percent Auto 12.2 % (2.0-11.0); Neutrophils Absolute Auto 3.9 K/mm3 (1.7-7.2); Neutrophils Percent Auto 68.9 % (50.0-70.0); Platelet Count Result 230 K/mm3 (150-420); Red Blood Count 4.89 M/mm3 (4.70-6.10); Red Cell Distribution Width 12.2 % (11.6-14.4); White Blood Count 5.7 K/mm3 (4.8-10.8)
[2023-05-18 08:56] LABS: Alanine Aminotransferase 17 U/L (16-63); Albumin Level 3.8 g/dL (3.4-5.0); Alkaline Phosphatase 78 U/L (46-116); Anion Gap 6 mmol/L (8-16); Aspartate Amino Transferase 10 U/L (15-37); Bilirubin,Total 0.5 mg/dL (0.00-1.00); Blood Urea Nitrogen 9 mg/dL (7-18); Calcium 9.1 mg/dL (8.5-10.1); Carbon Dioxide 32 mmol/L (21-32); Chloride 105 mmol/L (98-108); Estimated Glomerular Filt Rate > 60; Glucose 95 mg/dL (70-99); Osmolality Calculated 294 mOsm/kg (285-295); Sodium 143 mmol/L (136-145); Total Protein 6.7 g/dL (6.4-8.2)
[2023-05-18 09:16] LABS: Thyroid Stimulating Hormone Reflex 0.83 u/IU/mL (0.36-3.74)
== END 2023-05-18 08:13 | disposition home or self-care (01) ==
LOC: CHSLAB 08:14
PROVIDERS: PCP Family Medicine; Visit Provider Family Medicine
DX: K21.9 Gastro-esophageal reflux disease without esophagitis (principal); E11.9 Type 2 diabetes mellitus without complications; F41.1 Generalized anxiety disorder
CPT/HCPCS: 36415; 80053; 84443; 85025

== ENCOUNTER 2023-05-18 16:37 | Emergency (ER) | payer OTHER, SELFPAY ==
--- NOTE | ~2023-05-18 | CT_ITS ---
EXAMINATION: CT brain wo con DATE: 05/18/2023 17:39 INDICATION: Headache. TECHNIQUE: Computed tomography (CT) of the head was performed without intravenous contrast. The mA wa s adjusted according to patient size. Iterative reconstruction technique was employed. The dose-lengt h product was 681.00 mGy-cm. COMPARISON: Head CT 05/04/2023 FINDINGS: There is no intracranial hemorrhage, acute infarction, or abnormal intracranial mass lesion . The ventricles are normal in size. The orbits are normal. There is mild mucosal thickening in the p aranasal sinuses. The mastoid air cells are normal. IMPRESSION: 1. Normal brain. Reviewed, dictated and finalized at location E. IMPRESSION: 1. Normal brain.
[2023-05-18 16:37] VITALS: BP 129/95; PULSE 102; RESP 16; TEMP 37.8; O2SAT 98
--- NOTE | 2023-05-18 17:14 | ED.GENADULT ---
HPI - General Adult General Chief complaint: Headache Stated complaint: headaches x 2 months Time Seen by Provider: 05/18/23 16:54 History of Present Illness HPI narrative: 32YO MAN PRESENTS WITH HEADACHE EVERY DAY FOR THE PAST TWO MONTHS THAT FEELS LIKE A DULL ACHE ALL OVER THE HEAD RADIATING DOWN INTO THE NECK. HAS BEEN STEADILY WORSENING OVER THE PAST ONE MONTH. TRYING TO GET IN WITH HIS PMD, WHOSE NURSE ADVISED HIM TO PRESENT HERE DUE TO SEVERITY OF THE PAIN. HAS TRIED HOME MIGRAINE MEDICATION WITHOUT RELIEF. ROS NOTABLE FOR INTERMITTENTLY BLURRY VISION. NO NUMBNESS, WEAKNESS, OR SPEECH DIFFICULTY. Related Data Allergies Allergy/AdvReac Type Severity Reaction Status Date / Time No Known Allergies Allergy Verified 05/18/23 16:53 Review of Systems Review of Systems: All systems reviewed & are unremarkable except as noted in HPI and below Constitutional: Constitutional: Denies chills and Denies fever(s) ENT: Denies dysphagia Cardiovascular: Cardiovascular: Denies chest pain Respiratory: Respiratory: Denies dyspnea Gastrointestinal: Gastrointestinal: Denies abdominal pain PMFSH Past Medical History Medical History Anxiety Broken ankle Depression Gastritis Hallucination Tremors of nervous system Surgical History Surgical History History of ankle surgery broken ankle repair History of surgery on arm left arm and chest Social History Social History Social History: Marijuana use Smoking status: Current every day smoker Tobacco type: e-cigarettes/vaping Alcohol intake: current Alcohol use details: social Substance use: current Substance use type: marijuana Exam Const: General: healthy appearing and no acute distress Nutritional Appearance: well nourished Eyes: Conjunctivae: conjunctivae normal Resp: Effort & Inspection: normal respiratory effort and not labored Cardio: Rate: regular rate and tachycardic GI: Inspection: non-distended Skin: General skin exam: normal color, no jaundice and no pallor Neuro: General: patient oriented x3 and moves all extremities Speech: normal speech Gait exam (Neuro): Normal gait present Course Vital Signs Vital signs: Vital Signs Temperature 37.8 C H 05/18/23 16:37 Pulse Rate 102 H 05/18/23 16:37 Respiratory Rate 16 05/18/23 16:37 Blood Pressure 129/95 H 05/18/23 16:37 Pulse Oximetry 98 05/18/23 16:37 Oxygen Delivery Room Air 05/18/23 16:37 Temperature 37.8 C H 05/18/23 16:37 Pulse Rate 102 H 05/18/23 16:37 Respiratory Rate 16 05/18/23 16:37 Blood Pressure 129/95 H 05/18/23 16:37 Pulse Oximetry 98 05/18/23 16:37 Oxygen Delivery Room Air 05/18/23 16:37 Medical Decision Making MDM Narrative Medical decision making narrative: CHRONIC HEADACHE DDX FREQUENT MIGRAINE, TENSION HEADACHE, NEOPLASM, VASCULITIS Vital Signs Vital Signs: Vital Signs Temperature 37.8 C H 05/18/23 16:37 Pulse Rate 102 H 05/18/23 16:37 Respiratory Rate 16 05/18/23 16:37 Blood Pressure 129/95 H 05/18/23 16:37 Pulse Oximetry 98 05/18/23 16:37 Oxygen Delivery Room Air 05/18/23 16:37 Temperature 37.8 C H 05/18/23 16:37 Pulse Rate 102 H 05/18/23 16:37 Respiratory Rate 16 05/18/23 16:37 Blood Pressure 129/95 H 05/18/23 16:37 Pulse Oximetry 98 05/18/23 16:37 Oxygen Delivery Room Air 05/18/23 16:37 Discharge Plan Discharge Clinical Impression: Acute intractable tension-type headache, Chronic headache with normal neurologic examination Patient Disposition: Home, Self-Care Condition: Stable Additional Instructions: Your labs and CT scan of the head are all perfectly normal. No further testing is needed. Take the prescribed medications as needed for headache pain. Follow-up with your regular doctor
[2023-05-18 17:23] LABS: Basophils Absolute Auto 0.05 K/mm3 (0.00-0.10); Basophils Percent Auto 0.8 % (0.0-1.0); Eosinophils Percent Auto 1.7 % (1.0-6.0); Hemoglobin 14.7 g/dL (14.0-18.0); Immature Granulocyte Absolute 0.02 K/mm3 (0.00-0.00); Immature Granulocyte Percent A 0.3 % (0.0-0.0); Lymphocytes Percent Auto 15.2 % (18.0-42.0); Mean Corpuscular Hemoglobin 30.7 pg (27.0-31.0); Mean Corpuscular Volume 87.7 fL (78.0-102.0); Mean Platelet Volume 9.5 fl (8.7-11.0); Monocytes Absolute Auto 0.84 K/mm3 (0.10-0.90); Monocytes Percent Auto 14.2 % (2.0-11.0); Neutrophils Percent Auto 67.8 % (50.0-70.0); Platelet Count Result 225 K/mm3 (150-420); Red Blood Count 4.79 M/mm3 (4.70-6.10); Red Cell Distribution Width 12.2 % (11.6-14.4); White Blood Count 5.9 K/mm3 (4.8-10.8)
[2023-05-18] MEDS: ACETAMINOPHEN 500 MG TABLET 1000 MG PO (17:27)
[2023-05-18] MEDS: methocarbamoL 500 MG TABLET 1000 MG PO (17:27)
--- NOTE | 2023-05-18 17:33 | PC.NURSE ---
PT IS IN CT AT THIS TIME. REPORT WAS TAKEN FROM JING WALDRON. PT REPORTS A STABBING PRESSURE TYPE OF PAIN TO THE ENTIRE HEAD, REPORTS HIS PAIN RADIATES DOWN HIS NECK. PT DENIES ANY N-V-D, FEVER THAT HE HAS BEEN AWARE OF, COUGH, CONGESTION, RUNNY NOSE. PT REPORTS HE HAS HAD BODYACHES. NO NEURO DEFICITS ARE NOTED.
[2023-05-18] MEDS: SODIUM CHLORIDE 0.9% IV 1,000 ML 999 ML IV CONT (17:45)
[2023-05-18] MEDS: diphenhydrAMINE HCl INJ 50 MG/ML VIAL 25 MG IV PUSH (17:47)
[2023-05-18] MEDS: KETOROLAC 30 MG/ML VIAL (*BKC) IV PUSH (17:48)
--- NOTE | 2023-05-18 18:14 | PC.NURSE ---
PT REPORTS NO RELIEF WITH MEDICATIONS. ERP IS AWARE.
[2023-05-18 18:25] VITALS: BP 121/83; PULSE 82; RESP 18; TEMP 37.5; O2SAT 100
[2023-05-18] MEDS: METOCLOPRAMIDE HCL INJ 10 MG/2 ML VIAL IV PUSH (18:25)
[2023-05-18 18:28] LABS: Erythrocyte Sedimentation Rate 5 mm/hr (0-15)
[2023-05-18 18:30] LABS: Influenza A QL RT-PCR Negative (Negative); Influenza B QL RT-PCR Negative (Negative); SARS-CoV-2 RNA PCR Negative (Negative)
[2023-05-18 18:35] LABS: RSV RNA, RT-PCR Negative (Negative)
[2023-05-18 18:37] LABS: Alanine Aminotransferase 9 U/L (16-63); Albumin Level 3.8 g/dL (3.4-5.0); Alkaline Phosphatase 79 U/L (46-116); Anion Gap 7 mmol/L (8-16); Aspartate Amino Transferase 11 U/L (15-37); Bilirubin,Total 0.5 mg/dL (0.00-1.00); Blood Urea Nitrogen 6 mg/dL (7-18); Calcium 8.7 mg/dL (8.5-10.1); Carbon Dioxide 31 mmol/L (21-32); Chloride 103 mmol/L (98-108); Creatine Kinase 87 U/L (39-308); Estimated Glomerular Filt Rate > 60; Glucose 79 mg/dL (70-99); Magnesium 1.9 mg/dL (1.8-2.4); Osmolality Calculated 288 mOsm/kg (285-295); Potassium 3.6 mmol/L (3.5-5.1); Sodium 141 mmol/L (136-145); Total Protein 6.9 g/dL (6.4-8.2)
[2023-05-18 18:39] LABS: Appearance Urine Clear (Clear); Bilirubin Urine Negative (Negative); Blood Urine Negative (Negative); Color Urine Light Yellow (Yellow); Glucose Urine UA Negative (Negative); Ketones Urine Negative (Negative); Leukocyte Esterase Ur Negative LEU/UL (Negative); Nitrate Urine Negative (Negative); Protein Urine Negative (Negative); Specific Grav Ur <= 1.005 (1.010-1.020); Urobilinogen Urine 0.2 mg/dL (0.2-1.0); pH Urine 7.5 (5.0-8.0)
[2023-05-18 18:50] VITALS: TEMP 37.1
[2023-05-18 19:07] LABS: Add Urine Microscopic? NO
[2023-05-18 19:20] VITALS: BP 121/83; PULSE 82; RESP 16; TEMP 36.6; O2SAT 98
== END 2023-05-18 19:22 | disposition home or self-care (01) ==
PROVIDERS: Emergency Provider Emergency Medicine; PCP Family Medicine
DX: G44.201 Tension-type headache, unspecified, intractable (principal); F17.219 Nicotine dependence, cigarettes, with unspecified nicotine-induced disorders; Z20.822 Contact with and (suspected) exposure to COVID-19
CPT/HCPCS: 36415; 70450; 80053; 81003; 82550; 83735; 85025; 85652; 87637; 96361; 96374; 96375; 99284; A9270; J1100; J1200; J1885; J2765; J7030

== ENCOUNTER 2023-05-23 07:32 | Outpatient (CLI) | payer OTHER, SELFPAY | END 2023-05-23 07:33 | disposition home or self-care (01) | LOC: CHSIMG 07:33 | PROVIDERS: PCP Family Medicine; Visit Provider Family Medicine | DX: R51.9 Headache, unspecified (principal); G89.29 Other chronic pain | CPT/HCPCS: 99199 ==

== ENCOUNTER 2023-09-17 10:49 | Outpatient (CLI) | payer OTHER, SELFPAY ==
[2023-09-17 11:18] LABS: Hematocrit 43.2 % (42.0-52.0); Hemoglobin 14.8 g/dL (14.0-18.0); Mean Corpuscular HGB Conc 34.3 g/dl (32-36); Mean Corpuscular Hemoglobin 30.2 pg (26-34); Mean Corpuscular Volume 88.2 fl (80-100); Mean Platelet Volume 9.4 fl (7.4-10.4); Platelet Count Result 286 k/mm3 (150-375); Red Cell Distribution Width 12.1 % (11.5-14.5); White Blood Count 6.7 K/mm3 (4.5-10.0)
[2023-09-17 13:45] LABS: Alanine Aminotransferase 18 U/L (6-50); Albumin Level 4.5 g/dL (3.5-5.1); Alkaline Phosphatase 62 U/L (38-126); Anion Gap 8 mmol/L (8-16); Aspartate Amino Transferase 24 U/L (17-59); Bilirubin,Total 0.4 mg/dL (0.2-1.3); Blood Urea Nitrogen 12 mg/dL (9-20); Carbon Dioxide 27 mmol/L (22-30); Chloride 106 mmol/L (98-107); Estimated Glomerular Filt Rate > 60; Glucose 98 mg/dL (65-110); Sodium 141 mmol/L (137-145)
== END 2023-09-17 10:50 | disposition home or self-care (01) ==
PROVIDERS: PCP Family Medicine; Visit Provider Nurse Practitioner Family
DX: K92.0 Hematemesis (principal)
CPT/HCPCS: 36415; 80053; 85027

== ENCOUNTER 2023-10-06 01:49 | Day surgery (SDC) | payer OTHER, SELFPAY ==
[2023-09-21 11:04] VITALS: BMI 33.5
--- NOTE | 2023-10-02 10:36 | SUR.PREOP ---
Patient called regarding upcoming procedure. Reviewed preop instructions, appointment times, and procedure prep.
[2023-10-06 11:00] VITALS: BP 139/88; PULSE 84; RESP 18; TEMP 36.6; O2SAT 99; BMI 33.3
[2023-10-06] MEDS: LACTATED RINGERS 1,000 ML 150 ML IV CONT (11:14)
--- NOTE | 2023-10-06 11:14 | WPDHPUPDATE1 ---
History and Physical Update Update Date/Time: 10/06/23 11:14 History and Physical has been reviewed, including an updated exam of the patient. There are NO changes in the patient's condition. Risks, benefits, and alternatives have been discussed and questions answered. Patient agrees to proceed with procedure.
[2023-10-06 11:28] VITALS: BP 110/69; PULSE 86; RESP 22; O2SAT 95
--- NOTE | 2023-10-06 11:32 | P.PNAN_ITS ---
Anes - Initial Pre Proc Eval Procedure: Operation Date: 10/06/23 13:00 Proposed Procedures p Esophagogastroduodenoscopy - Clint Hanks MD Date/Time: 10/06/23 11:32 Surgeon: Clint Hanks MD Pre Op Diagnosis: GERD,Dysphagia,Hematemesis,Nausea/vomiting Patient Data Age: 33 Gender: M Height: 1.8 m Weight: 108.3 kg Last Vital Signs Temp 97.8 F 10/06/23 11:00 Pulse 84 10/06/23 11:00 Resp 18 10/06/23 11:00 BP 139/88 10/06/23 11:00 Pulse Ox 99 10/06/23 11:00 O2 Del Method Room Air 10/06/23 11:00 Allergies Allergy/AdvReac Type Severity Reaction Status Date / Time No Known Allergies Allergy Verified 10/06/23 11:05 Home Medications Medication Instructions Recorded Confirmed Type linaclotide 145 mcg capsule 145 mcg PO DAILY 3 months #90 caps 09/17/23 10/06/23 Rx (Linzess) sucralfate 1 gram tablet (Carafate) 1 g PO QID 1 month #120 tabs 09/17/23 10/06/23 Rx alprazolam 1 mg tablet (Xanax) 1 mg PO TID 09/21/23 10/06/23 History quetiapine 100 mg tablet 100 mg PO TID 09/21/23 10/06/23 History omeprazole 40 mg capsule,delayed 40 mg PO BID 3 months #180 caps 09/25/23 10/06/23 Rx release Patient hx anesthesia problems: none Family hx anesthesia problems: none Results Review: All pre-operative results and documents have been reviewed as part of the pre-operative evaluation. [facility] Past Medical History Medical History (Updated 09/17/23 @ 13:04 by ROBERT Carreno) Anxiety Broken ankle Constipation Depression Family history of colon cancer Gastritis Hallucination Tobacco use Tremors of nervous system Surgical History Surgical History History of ankle surgery broken ankle repair History of surgery on arm left arm and chest Social History Social History Social History: Marijuana use Smoking status: Current every day smoker Tobacco type: e-cigarettes/vaping Alcohol intake: current Alcohol use details: social Substance use: current Substance use type: does not use Living arrangements: with family Spiritual care concerns: No Anes - Eval Final PreProcedure Day of Procedure 10/06/23 11:32 Patient weight: normal Heart: regular rate and rhythm Lungs: clear to auscultation Airway: Mallampati scale class II Neurological: alert and oriented Last oral intake: >/= 8 hours ASA classification: III Emergent: no Anesthetic plan: proceed Anesthesia type and monitoring: general GIVS and standard monitoring Results Review: All pre-operative results and documents have been reviewed as part of the pre- operative evaluation. Informed Consent: The patient's anesthetic plan and its attendant risks and benefits were discussed with the patient/family/POA. Questions were solicited and answers provided to the satisfaction of the patient/family/POA.
[2023-10-06 11:38] VITALS: BP 115/72; PULSE 77; RESP 20; O2SAT 96
[2023-10-06 11:48] VITALS: BP 118/77; PULSE 88; RESP 20; O2SAT 98
== END 2023-10-06 12:00 | disposition home or self-care (01) ==
PROVIDERS: PCP Family Medicine; Visit Provider Internal Medicine Gastroenterology
PROC: 0DJ08ZZ Inspection of Upper Intestinal Tract, Via Natural or Artificial Opening Endoscopic (ICD-10-PCS; CPT 43235; principal; 2023-10-06 13:00)
DX: K29.50 Unspecified chronic gastritis without bleeding (principal); K21.9 Gastro-esophageal reflux disease without esophagitis; F41.9 Anxiety disorder, unspecified; F32.A Depression, unspecified; F17.210 Nicotine dependence, cigarettes, uncomplicated; Z98.890 Other specified postprocedural states; Z80.0 Family history of malignant neoplasm of digestive organs
CPT/HCPCS: 43239; 88305; J2704; J7120

== ENCOUNTER 2025-02-13 06:57 | Emergency (ER) | payer OTHER, SELFPAY ==
--- OUTSIDE RECORDS SUMMARY | 2025-02-13 06:59 | XMS_ITS | Clinical Summary ---
Author Organization [facility] Address [address] [place] [address] Care Team Providers Care Garment Mender Name Role Phone Unknown, Notinfile Primary Care Provider Unavail able Allergies Active Allergy Reactions Criticality Noted Date Comments Haloperidol Paliperidone Nausea only,Vomiting Medium Reaction: NAUSEA, VOMITING, , Reaction: NAUSEA, VOMITING, Prochlorperazine Other (See comments) High Reaction: SEIZURES, Reaction: SEIZURES, Medications pantoprazole DR (PROTONIX) 40 mg EC tablet Take 1 tablet (40 mg total) by mouth 2 (two) times a day 60 tablet 2 03/26/2022 Active Active Problems Problem Noted Date Diagnosed Date Melena 03/26/2022 Overview (03/26/2022): Added automatically from request for surgery [id number] Epigastric pain 03/26/2022 Overview (03/26/2022): Added automatically from request for surgery [id number] Pharyngoesophageal dysphagia 03/26/2022 Overview (03/26/2022): Added automatically from request for surgery [id number] Nausea and vomiting 03/26/2022 Overview (03/26/2022): Added automatically from request for surgery [id number] Family history of colon cancer in father 022 Overview (03/26/2022): Added automatically from request for surgery [id number] Family history of esophageal cancer 03/26/2022 Overview (03/26/2022): Added automatically from request for surgery [id number] Surgical History Surgery Date Site/Laterality Comments COLONOSCOPY 04/07/2022 Social History Tobacco Use Types Packs/Day Years Used Date Smoking Tobacco: Every Day Vaping AUDIT-C Answer Date Recorded Q1: How often do you have a drink containing alc ohol? 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 Gender Identity Not on file Sexual Orientation Not on file Obstetrics History Last Filed Vital Signs Vital Sign Reading Time Taken Comments Blood Pressure 104/73 04/07/2022 9:50 AM CDT Pulse 64 04/07/2022 9:50 AM CDT Temperature 36.6 C (97.9 F) 04/07/2022 9:50 AM CDT Respiratory Rate 16 04/07/2022 9:50 AM CDT Oxygen Saturation 97% 04/07/2022 9:50 AM CDT Inhaled Oxygen Concentration - - Weight 106.6 kg (235 lb) 04/07/2022 7:49 AM CDT Height 180.3 cm (5' 11) 04/07/2022 7:49 AM CDT Body Mass Index 32.78 04/07/2022 7:49 AM CDT Plan of Treatment Health Maintenance Due Date Last Done Comments Depression Screening 1988 Hepatitis C Screening 1988 Varicella Vaccines (1 of 2 - 13+ 2-dose series) 2001 DTaP/Tdap/Td Vaccine (6 - Tdap) 01/12/2003 01/11/2003, 10/10/1992, 03/25/1990, Additional history exists Regular Well Visit/Exam 18-64 2006 Pneumococcal vaccine <65 (1 of 2 - PCV) 2007 Covid-19 Vaccine (3 - season) 2024 06/05/2021, 05/15/2021 Influenza Vaccine (Season Ended) 2025 Hepatitis B Screening Completed 10/09/1999 , 05/08/1999, 04/10/1999 HPV Vaccines Aged Out No longer eligi ble based on patient's age to complete this topic Insurance [facility] Advance Directives For more information, please contact: [phone] * Full Code (Latest Code Status on File) Date Activated Date Inactivated Comments 04/07/2022 7:53 AM 04/07/2022 2:35 PM * Full Code Date Activated Date Inactivated Comments 04/07/2022 7:53 AM 04/07/2022 7:53 AM Care Teams Garment Mender Relationship Specialty Start Date End Date Unknown, Notinfile PCP - General 04/06/23
--- OUTSIDE RECORDS SUMMARY | 2025-02-13 06:59 | XMS_ITS | Referral Summary ---
Author Organization [facility] Address [address] [place] [address] Care Team Providers Care Facility Manager Name Role Phone Unknown, Notinfile Primary Care [...] (03/26/2022): Added automatically from request for surgery [id number] Epigastric pain 03/26/2022 Overview (03/26/2022): Added automatically from request for surgery [id number] Pharyngoesophageal dysphagia 03/26/2022 Overview (03/26/2022): Added automatically from request for surgery [id number] Nausea and vomiting 03/26/2022 Overview (03/26/2022): Added automatically from request for surgery [id number] Family history of colon cancer in father 022 Overview (03/26/2022): Added automatically from request for surgery [id number] Family history of esophageal cancer 03/26/2022 Overview (03/26/2022): Added automatically from request for surgery [id number] Social History Tobacco Use Types Packs/Day Years [...] on file 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
--- OUTSIDE RECORDS SUMMARY | 2025-02-13 06:59 | XMS_ITS | Continuity of Care Document ---
Author Organization [facility] Address [address] [place] [address] Phone Care Team Providers Care Loft Worker Head Name Role Phone Domo SINGER, Lawrence Unavailable Unavailable Allergies, Adverse Reactions, Alerts Substance Reaction Status Criticality propranolol Active No Information paliperidone Active No Information Medications Medication Instructions Dosage Effective Dates (start - stop) Status Comments Seroquel 100 mg tablet take 1 tablet by oral route 2 times every day 100 MG - Active loratadine 10 mg capsule once daily - Active Colace 100 mg capsule take 1 tab bid - Act bryan Procedures Procedure Date OFFICE/OUTPATIENT VISIT NEW Advance Directives Directive Yes / No Effective Date File Name No Information Encounters Encounter Description Practice Location Reason(s) For Visit Diagnoses Date Provider OFFICE/OUTPA TIENT VISIT NEW [facility], [address], [place], [address], [place] tel:[phone] [facility] Partial epilepsy, without mention of intractable epilepsyDizzinessMigrain e [address] [facility], [address], [place], [place], [id number], [place]. tel:[phone] Family History Family Member Type Diagnosis Age At Onset No Information Payers Payer name Insurance type Covered green party ID Authoriza tion(s) Medicaid [id number] Social History Type Description Quantity Date Captured Comments Alcohol Use Details Unknown Caffeine Use Details Unknown Tobacco Use Status No Information Smoking Status No Information Sex Male Vital Signs Date / Time: Height Weight BMI Pulse Rate Blood Pressure Temperature Respiratory Rate Body Surface Area Head Circumference Head Circ. Percentile Wt./Tra. Percentile BMI percentile Pulse Ox Inhaled Ox 9:14 AM 70.50 in 112.718 kg (248.50 lbs) 35.1 5 kg/m eter (2) 93 /min 124/84 mm[Hg] 20 /min 2.37 meter(2) Chief Complaint And Reason For Visit No Information History Of Present Illness Encounter Date Complaint History Of Prese nt Illness No Information Instructions Date Instruction Additional Infor mation No Information Assessments Type Assessment Date No Information
--- OUTSIDE RECORDS SUMMARY | 2025-02-13 06:59 | XMS_ITS | CONTINUITY OF CARE DOCUMENT ---
Author Name harjinder grande Address Unknown Organization [facility] Address [address] [place] [address] [address] [place] [address] Phone [phone] Care Team Providers Care Od Grinder Operator Name Role Phone Ascencion Dent MD Unavailable INSURANCE PROVIDERS Payer name Policy type / Coverage type [place] red libertarian ID MEDICAID [place] Medicaid [id number]
[2025-02-13 07:11] VITALS: BP 138/82; PULSE 78; RESP 20; TEMP 36.8; O2SAT 100
--- NOTE | 2025-02-13 07:16 | ED.URI ---
HPI - URI/Sore Throat General Chief Complaint: Upper Respiratory Infection Stated Complaint: Sinus Pressure Time Seen by Provider: 02/13/25 07:16 Source: patient Related Data Home Medications ?Medication ?Instructions ?Recorded ?Confirmed ?Last Taken ?Type alprazolam 1 mg tablet (Xanax) 1 mg PO TID 09/21/23 02/13/25 Unknown History Allergies Allergy/AdvReac Type Severity Reaction Status Date / Time No Known Allergies Allergy Verified 02/13/25 07:16 [facility] Past Medical History Medical History (Updated 02/13/25 @ 07:27 by Travis Huntley MD) Tobacco use Constipation Family history of colon cancer Gastritis Tremors of nervous system Broken ankle Hallucination Depression Anxiety Surgical History Surgical History History of ankle surgery broken ankle repair History of surgery on arm left arm and chest Social History Social History Social History: Marijuana use Smoking status: Current every day smoker Tobacco type: e-cigarettes/vaping Alcohol intake: current Alcohol use details: social Substance use: current Substance use type: does not use Living arrangements: with family Spiritual care concerns: No Course Vital Signs Vital signs: Vital Signs Temperature 36.8 C 02/13/25 07:11 Pulse Rate 78 02/13/25 07:11 Respiratory Rate 20 02/13/25 07:11 Blood Pressure 138/82 02/13/25 07:11 Pulse Oximetry 100 02/13/25 07:11 Oxygen Delivery Room Air 02/13/25 07:11 Temperature 36.8 C 02/13/25 07:11 Pulse Rate 78 02/13/25 07:11 Respiratory Rate 20 02/13/25 07:11 Blood Pressure 138/82 02/13/25 07:11 Pulse Oximetry 100 02/13/25 07:11 Oxygen Delivery Room Air 02/13/25 07:11 Discharge Plan Discharge Clinical Impression: Sinusitis, Chronic lower back pain Patient Disposition: Home Condition: Stable Instructions: Antibiotic Form, Sinusitis (ED), Low Back Strain (ED), Lower Back Exercises (ED) Additional Instructions: call pmd for follow up Patient Language: Somali Prescriptions: New amoxicillin-pot clavulanate [Augmentin] 500-125 mg tablet 1 tablet PO Q8H Qty: 30 0RF fluticasone propionate [Flonase Allergy Relief] 50 mcg/actuation spray,suspension 2 spray intranasal DAILY Qty: 36.4 0RF Rx Instructions: administer into each nostril Zyrtec 10 mg capsule 10 mg PO BID PRN (Reason: allergy symptoms) Qty: 30 0RF prednisone 20 mg tablet 40 mg PO DAILY 5 Days Qty: 10 0RF diclofenac sodium 75 mg tablet,delayed release (DR/EC) 75 mg PO BID PRN (Reason: pain) Qty: 14 0RF No Action alprazolam [Xanax] 1 mg tablet 1 mg PO TID Follow-up/Referrals: Regan Briscoe MD [Primary Care Provider] - Stand Alone Forms: Work/School Release IP
--- OUTSIDE RECORDS SUMMARY | 2025-02-13 07:40 | XMS_ITS | CONTINUITY OF CARE DOCUMENT ---
Author Name harjinder grande Address Unknown Organization [facility] Address [address] [place] [address] [address] [place] [address] Phone [phone] Care Team Providers Care Poultry Culler Name Role Phone Ascencion Dent MD Unavailable INSURANCE PROVIDERS Payer name Policy type / Coverage type [place] red democrat [place] [id number]
--- OUTSIDE RECORDS SUMMARY | 2025-02-13 07:40 | XMS_ITS | Referral Summary ---
Author Organization [facility] Address [address] [place] [address] Care Team Providers Care Glass Lathe Operator Name Role Phone Unknown, Notinfile Primary Care [...] (03/26/2022): Added automatically from request for surgery [id number] Epigastric pain 03/26/2022 Overview (03/26/2022): Added automatically from request for surgery [id number] Pharyngoesophageal dysphagia 03/26/2022 Overview (03/26/2022): Added automatically from request for surgery [id number] Nausea and vomiting 03/26/2022 Overview (03/26/2022): Added automatically from request for surgery [id number] Family history of colon cancer in father 022 Overview (03/26/2022): Added automatically from request for surgery [id number] Family history of esophageal cancer 03/26/2022 Overview (03/26/2022): Added automatically from request for surgery [id number] Social History Tobacco Use Types Packs/Day Years [...] on file 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
--- OUTSIDE RECORDS SUMMARY | 2025-02-13 07:40 | XMS_ITS | Continuity of Care Document ---
Author Organization [facility] Address [address] [place] [address] Phone Care Team Providers Care Supervisor Billposting Name Role Phone Domo SINGER, Lawrence Unavailable [...] OFFICE/OUTPA TIENT VISIT NEW [facility], [address], [place], [address], [place] tel:[phone] [facility] Partial epilepsy, without mention of intractable epilepsyDizzinessMigrain e [address]. [address], [address], [place], [place], [id number], [place]. tel:[phone] Family History Family Member Type Diagnosis Age At Onset No Information Payers Payer name Insurance type Covered democrat ID Authoriza tion(s) Medicaid [id number] Social History Type Description Quantity Date Captured Comments Alcohol Use Details Unknown Caffeine Use Details Unknown Tobacco Use Status No Information Smoking Status No Information Sex Male Vital Signs Date / Time: Height Weight BMI Pulse Rate Blood Pressure Temperature Respiratory Rate Body Surface Area Head Circumference Head Circ. Percentile Wt./Rta. Percentile BMI percentile Pulse Ox Inhaled Ox [...]
--- OUTSIDE RECORDS SUMMARY | 2025-02-13 07:40 | XMS_ITS | Clinical Summary ---
[facility] Organization [facility] Address [address] [place] [address] Care Team Providers Care Materials Inspector Name Role Phone Unknown, Notinfile Primary Care [...] (03/26/2022): Added automatically from request for surgery [id number] Epigastric pain 03/26/2022 Overview (03/26/2022): Added automatically from request for surgery [id number] Pharyngoesophageal dysphagia 03/26/2022 Overview (03/26/2022): Added automatically from request for surgery [id number] Nausea and vomiting 03/26/2022 Overview (03/26/2022): Added automatically from request for surgery [id number] Family history of colon cancer in father 022 Overview (03/26/2022): Added automatically from request for surgery [id number] Family history of esophageal cancer 03/26/2022 Overview (03/26/2022): Added automatically from request for surgery [id number] Surgical History Surgery Date Site/Laterality Comments COLONOSCOPY [...] on file Legal 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
== END 2025-02-13 07:50 | disposition home or self-care (01) ==
PROVIDERS: Emergency Provider Emergency Medicine; PCP Family Medicine
DX: J32.9 Chronic sinusitis, unspecified (principal); M54.50 Low back pain, unspecified; G89.29 Other chronic pain
CPT/HCPCS: 99283

== ENCOUNTER 2025-02-19 10:26 | Emergency (ER) | payer OTHER, SELFPAY ==
--- NOTE | ~2025-02-19 | XR_ITS ---
Portable chest x-ray Comparison: 03/17/2022 Clinical History: Chest pain Findings: Lungs are clear, without focal consolidation or pleural effusion. Cardiomediastinal silho uette is stable. Bones and soft tissues are unremarkable. Impression: Normal chest. Reviewed, dictated and finalized at [facility]. Impression: Normal chest.
[2025-02-19 10:32] VITALS: BP 156/103; PULSE 92; RESP 20; TEMP 36.9; O2SAT 100
--- NOTE | 2025-02-19 10:41 | ECG_ITS ---
Test Date: 2025-02-19 11:01:47 Measurements Intervals Clancy Rate: 83 P: 53 RI: 141 QRS: 38 QRSD: 101 T: 34 QT: 335 QTc: 394 Interpretive Statements SINUS RHYTHM INCOMPLETE RIGHT BUNDLE BRANCH BLOCK BASELINE ARTIFACT- III, AVL BORDERLINE ECG No previous ECG available for comparison Electronically Signed On 02-19-2025 12:41:56 CDT by Samir Blackman D.O.
--- NOTE | 2025-02-19 10:43 | ED_ITS ---
HPI - General Adult General Chief complaint: Nausea/Vomiting/Diarrhea Stated complaint: vomitting & body aches Time Seen by Provider: 02/19/25 10:29 History of Present Illness HPI narrative: Yonas is a 34M with a pMH of tobacco use, Mood disorders and GERD that presented to the ED not feeling well. He started feeling poor 5 days ago with a sore throat and sinus congestion. He has progressed to feeling weak with body aches, fatigue, chest pressure and dyspnea so he came in. He also reports that he may have vomited some blood. Related Data Home Medications ?Medication ?Instructions ?Recorded ?Confirmed ?Last Taken ?Type alprazolam 1 mg tablet (Xanax) 1 mg PO TID 09/21/23 02/13/25 Unknown History Allergies Allergy/AdvReac Type Severity Reaction Status Date / Time No Known Allergies Allergy Verified 02/19/25 10:29 Review of Systems Review of Systems: All systems reviewed & are unremarkable except as noted in HPI and below PMFSH Past Medical History Medical History Tobacco use Constipation Family history of colon cancer Gastritis Tremors of nervous system Broken ankle Hallucination Depression Anxiety Surgical History Surgical History History of ankle surgery broken ankle repair History of surgery on arm left arm and chest Social History Social History Social History: Marijuana use Smoking status: Current every day smoker Tobacco type: e-cigarettes/vaping Alcohol intake: current Alcohol use details: social Substance use: current Substance use type: does not use Living arrangements: with family Spiritual care concerns: No Exam Const: General: cooperative, comfortable, no acute distress, well developed, alert, awake and Physically active Orientation/consciousness: oriented to person, oriented to place and oriented to time HENMT: Head: normal to inspection, normocephalic and atraumatic Ears: hearing grossly normal bilaterally and external ears normal Face/Nose/Sinus: Normal external nose present Eyes: General: appearance normal, both eyes and all related structures Periorbital: periorbital findings normal Sclera: sclerae normal Pupils: Equal, round and reactive pupils present Neck: Neck: normal visual inspection Chest: Chest palpation & inspection: normal inspection of the chest Resp: Effort & Inspection: normal respiratory effort, able to speak in complete sentences and no respiratory distress Auscultation: clear to auscultation bilaterally Cardio: Jugular venous distension: no JVD Rate: regular rate Rhythm: regular rhythm GI: Inspection: normal to inspection GI Palp: Yes Soft to palpation Auscultation: normal bowel sounds Skin: General skin exam: normal color and no rashes or lesions noted Neuro: General: oriented to person, oriented to place and oriented to time Cranial nerves: Yes Equal, round and reactive pupils present Extrem: General: normal to inspection Course Course Emergency Course: Ordered labs, CXR, viral testing, fluids, zofran and toradol. EKG showed NSR with a rate of 83, no ST elevation/depression Portable chest x-ray Comparison: 03/17/2022 Clinical History: Chest pain Findings: Lungs are clear, without focal consolidation or pleural effusion. Cardiomediastinal silhouette is stable. Bones and soft tissues are unremarkable. Impression: Normal chest. Labs largely unremarkable except for leukocytosis He remained stable while in the ED. He had no episodes of vomiting. Vital Signs Vital signs: Vital Signs Temperature 98.5 F 02/19/25 10:32 Pulse Rate 92 02/19/25 10:32 Respiratory Rate 20 02/19/25 10:32 Blood Pressure 156/103 H 02/19/25 10:32 Pulse Oximetry 100 02/19/25 10:32 Oxygen Delivery Room Air 02/19/25 10:32 Temperature 98.5 F 02/19/25 10:32 Pulse Rate 92 02/19/25 10:32 Respiratory Rate 02/19/25 10:32 Blood Pressure 156/103 H 02/19/25 10:32 Pulse Oximetry 100 02/19/25 10:32 Oxygen Delivery Room Air 02/19/25 10:32 Medical Decision Making Vital Signs Vital Signs: Vital Signs Temperature 98.5 F 02/19/25 10:32 Pulse Rate 92 02/19/25 10:32 Respiratory Rate 20 02/19/25 10:32 Blood Pressure 156/103 H 02/19/25 10:32 Pulse Oximetry 100 02/19/25 10:32 Oxygen Delivery Room Air 02/19/25 10:32 Temperature 98.5 F 02/19/25 10:32 Pulse Rate 92 02/19/25 10:32 Respiratory Rate 20 02/19/25 10:32 Blood Pressure 156/103 H 02/19/25 10:32 Pulse Oximetry 100 02/19/25 10:32 Oxygen Delivery Room Air 02/19/25 10:32 Discharge Plan Discharge Clinical Impression: Acute viral syndrome Patient Disposition: Home Condition: Stable Instructions: Viral Syndrome (ED) Patient Language: Wallisian Prescriptions: No Action amoxicillin-pot clavulanate [Augmentin] 500-125 mg tablet 1 tablet PO Q8H Qty: 30 0RF fluticasone propionate [Flonase Allergy Relief] 50 mcg/actuation spray,suspension 2 spray intranasal DAILY Qty: 36.4 0RF Rx Instructions: administer into each nostril Zyrtec 10 mg capsule 10 mg PO BID PRN (Reason: allergy symptoms) Qty: 30 0RF prednisone 20 mg tablet 40 mg PO DAILY 5 Days Qty: 10 0RF diclofenac sodium 75 mg tablet,delayed release (DR/EC) 75 mg PO BID PRN (Reason: pain) Qty: 14 0RF alprazolam [Xanax] 1 mg tablet 1 mg PO TID Follow-up/Referrals: Eben Roach DO [Primary Care Provider] -
[2025-02-19 11:00] VITALS: BP 134/91; PULSE 72; RESP 17; O2SAT 98
[2025-02-19 11:03] LABS: Add Urine Microscopic? NO; Appearance Urine Clear (Clear); Bilirubin Urine Negative (Negative); Blood Urine Negative (Negative); Color Urine Light Yellow (Yellow); Glucose Urine UA Negative (Negative); Ketones Urine Negative (Negative); Leukocyte Esterase Ur Negative LEU/UL (Negative); Nitrate Urine Negative (Negative); Protein Urine Negative (Negative); Specific Grav Ur 1.015 (1.010-1.020)
[2025-02-19 11:03] LABS: Basophils Absolute Auto 0.04 K/mm3 (0.00-0.10); Basophils Percent Auto 0.2 % (0.0-1.0); Eosinophils Absolute Auto 0.01 K/mm3 (0.02-0.50); Eosinophils Percent Auto 0.1 % (1.0-6.0); Hematocrit 47.3 % (40.0-54.0); Hemoglobin 16.3 g/dL (14.0-18.0); Immature Granulocyte Absolute 0.06 K/mm3 (0.00-0.00); Immature Granulocyte Percent A 0.4 % (0.0-0.0); Lymphocytes Percent Auto 14.7 % (18.0-42.0); Mean Corpuscular HGB Conc 34.5 g/dL (32-36); Mean Corpuscular Hemoglobin 29.8 pg (27.0-31.0); Mean Corpuscular Volume 86.5 fL (78.0-102.0); Mean Platelet Volume 9.3 fl (8.7-11.0); Monocytes Absolute Auto 0.76 K/mm3 (0.10-0.90); Monocytes Percent Auto 4.6 % (2.0-11.0); Neutrophils Absolute Auto 13.09 K/mm3 (1.70-7.20); Platelet Count Result 342 K/mm3 (150-420); Red Blood Count 5.47 M/mm3 (4.70-6.10); Red Cell Distribution Width 12.1 % (11.6-14.4); White Blood Count 16.4 K/mm3 (4.8-10.8)
[2025-02-19] MEDS: SODIUM CHLORIDE 0.9% IV 1,000 ML 999 ML IV CONT (11:05)
[2025-02-19] MEDS: KETOROLAC 15 MG/ML VIAL (*BKC) IV PUSH (11:06)
[2025-02-19] MEDS: ONDANSETRON INJ 4 MG/2 ML VIAL IV PUSH (11:06)
--- NOTE | 2025-02-19 11:06 | PC.NURSE ---
Covid culture sent to lab
[2025-02-19 11:12] LABS: Lactic Acid Reflex 1.3 mmol/L (0.4-2.0)
[2025-02-19 11:13] LABS: Alanine Aminotransferase 34 U/L (6-50); Albumin Level 4.7 g/dL (3.5-5.1); Alkaline Phosphatase 68 U/L (38-126); Anion Gap 7 mmol/L (4-12); Aspartate Amino Transferase 28 U/L (17-59); Bilirubin,Total 0.9 mg/dL (0.2-1.3); Blood Urea Nitrogen 13 mg/dL (9-20); Calcium 9.2 mg/dL (8.4-10.2); Carbon Dioxide 26 mmol/L (22-30); Chloride 107 mmol/L (98-107); Estimated CRCL calculation 139 ml/min; Estimated Glomerular Filt Rate > 60; Glucose 109 mg/dL (65-110); INR 0.9; Osmolality Calculated 291 mOsm/kg (285-295); Potassium 3.7 mmol/L (3.4-5.0); Prothrombin Time 10.2 Seconds (9.50-12.1); Sodium 140 mmol/L (137-145); Total Protein 7.9 g/dL (6.3-8.2)
[2025-02-19 11:15] LABS: CRP < 0.5 mg/dL (<1.0)
[2025-02-19 11:22] LABS: NT Pro B Type Natriuretic Pept < 20 pg/mL (19.9-100)
[2025-02-19 11:24] LABS: Troponin I < 0.012 ng/mL (0.000-0.034)
[2025-02-19 11:30] VITALS: BP 117/82; PULSE 74; RESP 17; O2SAT 98
[2025-02-19 11:31] LABS: Strep Group A RT-PCR NOT DETECTED (Negative)
[2025-02-19 11:39] LABS: Influenza A QL RT-PCR Negative (Negative); Influenza B QL RT-PCR Negative (Negative); RSV RNA, RT-PCR Negative (Negative); SARS-CoV-2 RNA PCR Negative (Negative)
[2025-02-19 11:50] VITALS: BP 123/84; PULSE 71; RESP 17; TEMP 36.9; O2SAT 99
--- NOTE | 2025-02-20 12:53 | PC.NURSE ---
blood preliminary, no growth
--- NOTE | 2025-02-25 14:00 | PC.NURSE ---
final blood cultures x2 reviewed. no growth after 5 days. no change in plan of care
== END 2025-02-19 11:50 | disposition home or self-care (01) ==
PROVIDERS: Emergency Provider Family Medicine; PCP Family Medicine
DX: B34.9 Viral infection, unspecified (principal); F17.290 Nicotine dependence, other tobacco product, uncomplicated; Z20.822 Contact with and (suspected) exposure to COVID-19
CPT/HCPCS: 36415; 71045; 80053; 81003; 83605; 83880; 84484; 85025; 85610; 86140; 87040; 87637; 87651; 93005; 96361; 96374; 96375; 99284; J1885; J2405; J7030